=== PATIENT | female | born 1990 | race Caucasian/White ===

== ENCOUNTER 2018-01-29 21:17 | Emergency (ER) | payer OTHER ==
[~2018-01-29] VITALS: Ht 162.6 cm; Wt 59.0 kg
[2018-01-29 21:30] VITALS: BP_SYST 128
[2018-01-29] MEDS ORDERED: BACITRACIN 1 GM OINT TP ONE (21:45)
[2018-01-29] MEDS ORDERED: DIPH-TET-PERTUS Vaccine 0.5 ML VIAL (ADACEL) I.M. ONE (21:45)
[2018-01-29 22:26] VITALS: BP_SYST 122
== END 2018-01-29 22:26 | disposition home or self-care (01) ==
LOC: SED 21:17
DX: S61.201A Unspecified open wound of left index finger without damage to nail, initial encounter (principal); W26.8XXA Contact with other sharp object(s), not elsewhere classified, initial encounter; Y93.89 Activity, other specified; Y92.69 Other specified industrial and construction area as the place of occurrence of the external cause; Y99.8 Other external cause status
CPT/HCPCS: 90715; 99284